=== PATIENT | female | born 1980 | race Two or more races ===

== ENCOUNTER → 2017-10-03 | Outpatient (CLI) | payer OTHER ==
[~2017-10-03] MED LIST: IRON PO
== END ==
LOC: STAR 14:44
PROVIDERS: ATTEND Obstetrics & Gynecology Female Pelvic Medicine and Reconstructive Surgery
DX: Z02.9 Encounter for administrative examinations, unspecified (principal)

== ENCOUNTER 2017-10-11 07:30 | Day surgery (SDC) | payer OTHER ==
[~2017-10-11] VITALS: Ht 180.3 cm; Wt 100.4 kg
[~2017-10-11 07:30] MED LIST changes: +BUPIVACAINE/PF 0.25% ONE; +NEOMY/POLYMYXIN B GU IRR. 1 ML IRRIG ONE
[2017-10-11] MEDS ORDERED: LACTATED RINGERS 1,000 ML IV SCH (07:44)
[2017-10-11 07:54] LABS: HCG UR LOT HCG706132
[2017-10-11 07:59] LABS: HCG UR OBC PASS
[2017-10-11] MEDS ORDERED: MIDAZOLAM 1 MG/ML, 2ML ONE (08:12)
[2017-10-11] MEDS ORDERED: FENTANYL PF 100 MCG/2ML ONE ×3 (08:12→09:40)
[2017-10-11] MEDS ORDERED: PROPOFOL 10 MG/ML, 20ML ONE (08:13)
[2017-10-11] MEDS ORDERED: LIDOCAINE-MPF 2% ,5ML ONE (08:13)
[2017-10-11] MEDS ORDERED: ROCURONIUM 10 MG/ML,10ML ONE (08:14)
[2017-10-11] MEDS ORDERED: PHENYLEPHRINE 10 MG/ML ONE (08:14)
[2017-10-11] MEDS ORDERED: PROMETHAZINE 25 MG/ML, 1ML IV PRN (08:30)
[2017-10-11] MEDS ORDERED: MEPERIDINE/PF 25MG/0.5ML IVPush PRN (08:30)
[2017-10-11] MEDS ORDERED: HYDROmorphone 1 MG/ML, 1ML IV PRN (08:30)
[2017-10-11] MEDS ORDERED: ACETAMINOPHEN 325 MG TABLET PO PRN (08:30)
[2017-10-11] MEDS ORDERED: hydrALAzine 20 MG/ML, 1ML IV PRN (08:30)
[2017-10-11] MEDS ORDERED: LABETALOL 5MG/ML, 20ML IV PRN (08:30)
[2017-10-11] MEDS ORDERED: OXYcodone 5 MG/5 ML ORAL.SOL UDC PO PRN (08:30)
[2017-10-11] MEDS ORDERED: ONDANSETRON 2MG/ML, 2ML IVPush PRN (08:30)
[2017-10-11] MEDS ORDERED: ONDANSETRON 2MG/ML, 2ML ONE (08:50)
[2017-10-11] MEDS ORDERED: CEFOTETAN 1 GM ONE (08:50)
[2017-10-11] MEDS ORDERED: KETOROLAC 30 MG/1 ML ONE (08:50)
[2017-10-11] MEDS ORDERED: DEXAMETHASONE 4 MG/ML, 1ML ONE ×2 (08:55)
[2017-10-11] MEDS ORDERED: ACETAMINOPHEN 650 MG/20.3 ML UDC ONE (09:40)
[2017-10-11] MEDS ORDERED: OXYcodone 5 MG/5 ML ORAL.SOL UDC ONE (09:40)
[2017-10-11] MEDS: FENTANYL PF 100 MCG/2ML IV PRN ×2 (09:45→10:05)
== END 2017-10-11 12:10 ==
LOC: OUT 07:30
PROVIDERS: ATTEND Obstetrics & Gynecology Female Pelvic Medicine and Reconstructive Surgery
DX: N81.89 Other female genital prolapse (principal); N39.3 Stress incontinence (female) (male); N94.6 Dysmenorrhea, unspecified; N81.5 Vaginal enterocele; Z87.19 Personal history of other diseases of the digestive system; D64.9 Anemia, unspecified
CPT/HCPCS: 57265; 57282; 57288; 81025; C1771; J1100; J1885; J2250; J2370; J2405; J2704; J3010; J3490; J7120; S0074